=== PATIENT | female | born 1940 | race Caucasian/White ===

== ENCOUNTER 2020-02-23 09:08 | Day surgery (SDC) | payer MEDICARE ==
[~2020-02-23] VITALS: Ht 172.7 cm; Wt 134.5 kg
[2020-02-23] VITALS (10 sets, daily range): BP systolic 112–161; BP diastolic 47–100
[2020-02-23] MEDS ORDERED: normal saline 1000ml 1,000 ML IV SCH (09:30)
[2020-02-23] MEDS ORDERED: FURO-150 PO (10:02)
[2020-02-23] MEDS ORDERED: LOVA20TA2 PO (10:02)
[2020-02-23] MEDS ORDERED: APIX5TAB3 PO (10:02)
[2020-02-23] MEDS ORDERED: LEVO150T PO (10:02)
[2020-02-23 10:29] LABS: BASOPHILS % (AUTO) 0.7 % (0-1); EOSINOPHILS # (AUTO) 0.1 X10'3 (0-0.9); EOSINOPHILS % (AUTO) 1.1 % (0-6); HEMATOCRIT 43.8 % (35.0-45.0); HEMOGLOBIN 14.5 g/dl (12.0-16.0); LYMPHOCYTES # (AUTO) 2.2 X10'3 (1.1-4.8); LYMPHOCYTES % (AUTO) 29.6 % (21-51); MEAN CORPUSCULAR HEMOGLOBIN 32.4 PG (27.0-31.0); MEAN CORPUSCULAR HGB CONC 33.2 g/dL (33.0-36.5); MEAN CORPUSCULAR VOLUME 97.7 FL (78-98); MEAN PLATELET VOLUME 8.9 FL (7.4-10.4); MONOCYTES # (AUTO) 0.3 X10'3 (0-0.9); MONOCYTES % (AUTO) 4.5 % (2-12); NEUTROPHILS # (AUTO) 4.7 X10'3 (1.8-7.7); NEUTROPHILS % (AUTO) 64.1 % (42-75); PLATELET COUNT 254 X10'3 (140-440); RED BLOOD COUNT 4.49 X10'6 (4.20-5.60); RED CELL DISTRIBUTION WIDTH 16.1 % (11.5-14.5); WHITE BLOOD COUNT 7.3 X10'3 (4.5-11.0)
[2020-02-23 10:36] LABS: ALBUMIN 3.9 G/DL (3.4-5.0); ANION GAP 7 (8-16); BLOOD UREA NITROGEN 13 MG/DL (7-18); BUN/CREATININE RATIO 8.6 (6.6-38.0); CALCIUM 10.1 MG/DL (8.5-10.1); CHLORIDE 102 MMOL/L (99-107); CREATININE 1.51 MG/DL (0.40-0.90); GLUCOSE 118 MG/DL (70-104); MAGNESIUM 2.5 MG/DL (1.5-2.4); POTASSIUM 3.4 MMOL/L (3.5-5.1); SODIUM 141 MMOL/L (135-145); TOTAL CARBON DIOXIDE 31.6 MMOL/L (24-32); eGFR 33 ML/MIN
[2020-02-23] MEDS ORDERED: midazolam 2 mg/2 ml injection ONE ×2 (11:20→12:02)
[2020-02-23] MEDS ORDERED: ceFAZolin 1000mg inj ONE (11:20)
[2020-02-23] MEDS ORDERED: vancomycin 1,000mg inj ONE (11:20)
[2020-02-23] MEDS ORDERED: fentaNYL/PF 50MCG/1 ML 2ML syringe ONE (11:20)
[2020-02-23] MEDS ORDERED: LIDOcaine 1% W/epiNEPHrine 1:100,000 20ml vial ONE (11:20)
[2020-02-23] MEDS ORDERED: iohexol 350 MG/ML 50ML vial IV ONE (12:15)
[2020-02-23] MEDS ORDERED: HYDROcodone/acetaminophen 5mg/325mg tablet PO PRN (13:35)
[2020-02-23] MEDS ORDERED: HYDROcodone/acetaminophen 10/325mg tab PO PRN (13:35)
== END 2020-02-23 17:05 | disposition home or self-care (01) ==
LOC: SSTAY O 09:08
PROVIDERS: ATTEND Internal Medicine Cardiovascular Disease
DX: I49.5 Sick sinus syndrome (principal); I48.20 Chronic atrial fibrillation, unspecified; E03.9 Hypothyroidism, unspecified; E78.5 Hyperlipidemia, unspecified; Z79.899 Other long term (current) drug therapy; Z90.721 Acquired absence of ovaries, unilateral; Z90.710 Acquired absence of both cervix and uterus; Z90.49 Acquired absence of other specified parts of digestive tract; Z98.890 Other specified postprocedural states; Z96.653 Presence of artificial knee joint, bilateral; Z86.73 Personal history of transient ischemic attack (TIA), and cerebral infarction without residual deficits
CPT/HCPCS: 33207; 36415; 71045; 80048; 83735; 85025; 85610; 93005; 99152; 99153; C1786; C1898; J0690; J2250; J3010; J3370; J7050; Q9967; 33206; A4565; A4620; A6449